=== PATIENT | male | born 2005 | race Caucasian/White ===

== ENCOUNTER 2025-01-01 23:53 | Emergency (ER) | payer BC, SELFPAY ==
[2025-01-01 23:55] VITALS: BP 144/84
[2025-01-02 01:43] VITALS: BP 129/81
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
[2025-01-02] MEDS: MOTRIN 600 MG PO (02:52)
[2025-01-02 03:08] VITALS: BP 134/75
== END 2025-01-02 04:16 | disposition home or self-care (01) ==
LOC: EMR 23:53
PROVIDERS: EMERGENCY PHYSICIAN Student in an Organized Health Care Education/Training Program
DX: M54.9 Dorsalgia, unspecified (principal); R07.89 Other chest pain
CPT/HCPCS: 99284; 71046; 93005